=== PATIENT | female | born 1965 | race Caucasian/White ===

== ENCOUNTER 2021-10-24 14:28 | Outpatient (CLI) | payer BC | END 2021-10-24 14:29 | disposition home or self-care (01) | LOC: CSHULT 14:28 | PROVIDERS: ATTEND Family Medicine | DX: R63.6 Underweight (principal); E05.00 Thyrotoxicosis with diffuse goiter without thyrotoxic crisis or storm; Z86.16 Personal history of COVID-19; I95.9 Hypotension, unspecified; I34.0 Nonrheumatic mitral (valve) insufficiency | CPT/HCPCS: 93306 ==